=== PATIENT | male | born 1960 | race Caucasian/White ===

== ENCOUNTER → 2021-02-22 | Outpatient (CLI) | payer BC | LOC: LAB SHORT 16:48 → LAB 16:48 | PROVIDERS: Family Medicine | DX: Z79.899 Other long term (current) drug therapy (principal) | CPT/HCPCS: G0480 ==

== ENCOUNTER 2024-02-12 06:55 | Day surgery (SDC) | payer BC ==
[2024-02-12] VITALS (15 sets, daily range): BP systolic 90–159; BP diastolic 61–139
[~2024-02-12] VITALS: Ht 175.3 cm; Wt 102.1 kg
[~2024-02-12 06:55] MED LIST: ASPI81CH PO; CYCL10 PO; Flexeril10 MG PO; LISI20 PO; Lactated Ringer's 1,000 ML IV SCH; MELO7.5 PO; NAPR500 PO; Norco 5-325 Ta1 EACH PO; OXYC5 PO; PROM25 PO; SULTRIDS PO
[2024-02-12] MEDS ORDERED: Lisinopril-Hct1 EAC4 PO (07:14)
--- NOTE | 2024-02-12 07:34 | NUR ---
History, Chart, Medications and Allergies reviewed before start of procedure. Pre-Op teaching done. Pt verbalizes understanding. Patient states colon prep results DARK YELLOW. Patient States Post-Procedure ride home has been arranged WITH SPOUSE, TANK.
[2024-02-12] MEDS ORDERED: propofoL 40 ML IV ONE (08:04)
--- NOTE | 2024-02-12 08:14 | NUR ---
02/12/24 0814 Gigi Green CONFIRMED AND REVIEWED H&P, MEDCICATIONS, ALLERGIES, MEDICAL HISTORY, RESPIRATORY HISTORY, VITAL SIGNS, 3-LEAD EKG, CONSENTS, AND PHYSICIAN ORDERS. PATIENT CONFIRMS NPO STATUS AND AGREES WITH SCHEDULED PROCEDURE. MONITOR INTACT WITH CONTINUOUS PULSE OXIMETRY, CAPNOGRAPHY, 3-LEAD EKG, INTERMITTENT BP. SUPPLEMENTAL O2 TO BE TITRATED THROUGHOUT PROCEDURE TO MAINTAIN O2 SATURATION ABOVE 90%. PATIENT DETERMINED TO BE ASA APPROPRIATE FOR PROPOFOL SEDATION PRIOR TO START OF PROCEDURE BY DR. NAQVI
--- NOTE | 2024-02-12 08:44 | NUR ---
REPORT RECEIVED FROM CRISTIAN SYED. VSS. PT ON RA. PT ABLE TO REPOSITION SELF IN BED. PT REQUESTING PO FLUIDS AND TOLERATING THEM WELL. PT DENIES PAIN, NAUSEA OR OTHER DISCOMFORTS.
== END 2024-02-12 09:00 | disposition home or self-care (01) ==
LOC: ORSCMMR 06:55 → ORD 08:00 → ORSCMMR 08:00
PROVIDERS: Internal Medicine Gastroenterology
PROC: 0DBM8ZX Excision of Descending Colon, Via Natural or Artificial Opening Endoscopic, Diagnostic (ICD-10-PCS; principal; 2024-02-12 08:00)
PROC: 0DBH8ZX Excision of Cecum, Via Natural or Artificial Opening Endoscopic, Diagnostic (ICD-10-PCS; principal; 2024-02-12 08:00)
PROC: 0DBN8ZX Excision of Sigmoid Colon, Via Natural or Artificial Opening Endoscopic, Diagnostic (ICD-10-PCS; principal; 2024-02-12 08:00)
DX: Z12.11 Encounter for screening for malignant neoplasm of colon (principal); K63.5 Polyp of colon; D12.0 Benign neoplasm of cecum; D12.4 Benign neoplasm of descending colon; I10 Essential (primary) hypertension; Z79.899 Other long term (current) drug therapy
CPT/HCPCS: 88305; J2704; J7120